=== PATIENT | male | born 1980 | race Caucasian/White ===

== ENCOUNTER 2023-09-25 16:35 | Emergency (ER) | payer OTHER ==
[~2023-09-25 16:35] MED LIST: Iopamidol-370 76% 500 ML MDV (1 ML CHARGE) ONE
[2023-09-25] MEDS ORDERED: Ondansetron PF 4 MG/2 ML Vial ONE (17:10)
[2023-09-25] MEDS ORDERED: fentaNYL 50 mcg/mL 1 mL Vial ONE ×2 (17:10→17:11)
[2023-09-25] MEDS ORDERED: Boostrix 0.5 ML (Tdap) VIAL (>/=7 yrs of age) ONE (17:11)
[2023-09-25] MEDS ORDERED: Lidocaine 1% w/Epinephrine 1:100K 20 ML VIAL ONE (17:27)
[2023-09-25] MEDS ORDERED: Ketorolac Tromethamine 30 MG (1 mL) VIAL ONE (20:14)
== END 2023-09-25 21:02 | disposition home or self-care (01) ==
LOC: ERS 16:35
DX: S32.030A Wedge compression fracture of third lumbar vertebra, initial encounter for closed fracture (principal); S22.31XA Fracture of one rib, right side, initial encounter for closed fracture; S01.81XA Laceration without foreign body of other part of head, initial encounter; S05.31XA Ocular laceration without prolapse or loss of intraocular tissue, right eye, initial encounter; V89.2XXA Person injured in unspecified motor-vehicle accident, traffic, initial encounter; Z23 Encounter for immunization
CPT/HCPCS: 12002; 70450; 70486; 71045; 71260; 72125; 74177; 90471; 90715; 96374; 96375; J1885; J2405; J3010; Q9967

== ENCOUNTER 2023-09-30 13:55 | Emergency (ER) | payer OTHER | END 2023-09-30 17:01 | disposition home or self-care (01) | LOC: ERS 13:55 | DX: S05.31XD Ocular laceration without prolapse or loss of intraocular tissue, right eye, subsequent encounter (principal); F17.290 Nicotine dependence, other tobacco product, uncomplicated ==